=== PATIENT | male | born 1980 | race Caucasian/White ===

== ENCOUNTER 2017-06-03 07:31 | Day surgery (SDC) | payer OTHER ==
[2017-06-03] MEDS ORDERED: KETAMINE HCL INJ 500 MG/10 ML VIAL ONE (09:17)
[2017-06-03] MEDS ORDERED: MIDAZOLAM 2 MG/2 ML INJ ONE (09:17)
[2017-06-03] MEDS ORDERED: PROPOFOL INJ 200 MG/20 ML VIAL IV ONE (09:18)
[2017-06-03] MEDS ORDERED: MEPERIDINE HCL/PF INJ 25 MG/1 ML DISP.SYRIN IV PRN (09:46)
[2017-06-03] MEDS ORDERED: OXYCODONE-ACETAMINOPHEN 5-325 MG TABLET PO PRN ×2 (09:46)
[2017-06-03] MEDS ORDERED: FENTANYL CITRATE INJ/PF 100 MCG/2 ML AMPUL IV PRN ×3 (09:46)
[2017-06-03] MEDS ORDERED: DIPHENHYDRAMINE HCL 50 MG/ML VIAL IV PRN (09:46)
[2017-06-03] MEDS ORDERED: PROMETHAZINE HCL INJ 25 MG/1 ML VIAL IV PRN ×2 (09:46)
[2017-06-03] MEDS ORDERED: DEXTROSE 5%-1/2 NORMAL SALINE 1,000 ML IV PRN (10:11)
[2017-06-03] MEDS ORDERED: LIDOCAINE 0.5% INJ-PF (5 MG/ML) 50 ML SDV SUBCUT PRN (10:12)
[2017-06-03 11:15] VITALS: BP 116/71
--- NOTE | 2017-06-03 13:17 | Operative Report ---
Operative Report DATE OF SURGERY: 06/03/17 Operative Report: The risks, benefits and alternatives are explained to the patient informed consent is obtained time out is called Propofol sedation is provided colonoscopy performed to the cecum intubation of the terminal ileum is performed retroflexion is performed PREOPERATIVE DIAGNOSIS: ? possible history of colitis. blood in stools POSTOPERATIVE DIAGNOSIS: normal colonoscopy. biopsies obtained at the terminal ileum. internal hemorrhoids OPERATION: colonoscopy with biopsy SURGEON: GUILLERMINA LAM ANESTHESIA: LMAC TISSUE REMOVED OR ALTERED: as noted above COMPLICATIONS: none ESTIMATED BLOOD LOSS: none INTRAOPERATIVE FINDINGS: as noted above PROCEDURE: patient tolerated the procedure well did not have any post procedure complications patient is discharged in good condition discharge date : 06/03/17 discharge diet: regular discharge activity: regular patient will need follow up in 2-3 weeks patient is advised to go to ED or call office if needed wait on pathology
== END 2017-06-03 11:05 | disposition home or self-care (01) ==
LOC: OROUT 07:31
PROVIDERS: ATTEND Internal Medicine Gastroenterology
DX: K92.1 Melena (principal); K64.8 Other hemorrhoids; I10 Essential (primary) hypertension; K21.9 Gastro-esophageal reflux disease without esophagitis; F17.210 Nicotine dependence, cigarettes, uncomplicated; Z79.899 Other long term (current) drug therapy
CPT/HCPCS: 45380; 88305 ×2; J2250; J3490; J2704; 811